=== PATIENT | female | born 1990 | race African-American/Black ===

== ENCOUNTER 2019-12-21 09:30 | Inpatient (IN) | payer OTHER ==
[2019-12-21] MEDS: ELECTROLYTE-148 SOLN 1,000 ML IV SCH (10:45)
[2019-12-21] MEDS ORDERED: BUTORPHANOL TARTRATE 2 MG/ML VIAL ONE (10:52)
[2019-12-21] MEDS ORDERED: PROMETHAZINE HCL 25 MG/1 ML VIAL ONE (10:52)
[2019-12-21] MEDS ORDERED: BUTORPHANOL TARTRATE 1 MG/ML VIAL IVPB ONE (10:52)
[2019-12-21] MEDS ORDERED: PROMETHAZINE HCL 25 MG/1 ML VIAL IVPB ONE (10:52)
[2019-12-21 11:21] LABS: BASO % 0.4 % (0-2.0); EOS % 0.1 % (0-4.5); HEMATOCRIT 31.7 % (32.4-45.2); LYMPH % 14.3 % (8-40); MCH 26.9 pg (25.7-33.7); MCHC 31.5 g/dl (32.0-36.0); MEAN CELL VOLUME 85.4 fl (80-96); MEAN PLT VOLUME 11.8 fl (7.5-11.1); MONO % 5.8 % (3.8-10.2); NEUT % 79.4 % (42.8-82.8); PLATELET COUNT 132 K/MM3 (134-434); RBC 3.71 M/mm3 (3.60-5.2); RDW 16.1 % (11.6-15.6); WHITE BLOOD COUNT 9.6 K/mm3 (4.0-10.0)
[2019-12-21 11:29] LABS: INR 0.92 (0.83-1.09); PROTHROMBIN TIME (PATIENT) 10.8 SEC (9.7-13.0)
[2019-12-21 11:32] LABS: ACTIVATED PTT 29.1 SECONDS (25.2-36.5)
[2019-12-21 11:37] VITALS: BMI 42.9
[2019-12-21 11:42] LABS: BLOOD UREA NITROGEN 9.5 mg/dL (7-18); CALCIUM 9.3 mg/dL (8.5-10.1); CREATININE 0.7 mg/dL (0.55-1.3); POTASSIUM 4.1 mmol/L (3.5-5.1)
[2019-12-21] MEDS ORDERED: OXYTOCIN 20 UNITS in 0.9% NS 20 UNIT/1,000 ML INFUS.BAG IV ONE (11:48)
[2019-12-21] MEDS ORDERED: LIDOCAINE HCL 1% PRESERVATIVE FREE - 30ML VIAL ONE (11:48)
--- NOTE | 2019-12-21 11:54 | HP ---
Past Medical History - Primary Care Physician PCP:: - Admission Chief Complaint: In labor History of Present Illness: Late transfer. GBS neg. History Source: Medical Record, Caregiver Limitations to Obtaining History: No Limitations - Past Medical History APPRENTICE: No: Alzheimer's, CVA, Dementia, Migraine, Multiple Sclerosis, Peripheral Neuropathy, Parkinson's, Seizure, Syncope, TIA, Vertigo, Other Cardiovascular: No: AFIB, Aneurysm, Aortic Insufficiency, Aortic Stenosis, CAD, CHF, Deep Vein Thrombosis, HTN, Hyperlipdemia, IN, Mitral Insufficiency, Mitral Stenosis, Murmur, Pulmonary Hypertension, Other Pulmonary: No: Asthma, Bronchitis, Cancer, COPD, O2 Dependent, Pneumonia, Previously Intubated, Pulmonary Embolus, Pulmonary Fibrosis, Sleep Apnea, Other Gastrointestinal: No: Ascites, Cancer, Constipation, Crohn's Disease, Diverticulitis, Diverticulosis, Esophageal Varices, Gastritis, GERD, GI Bleed, Hemorrhoids, Hiatal Hernia, Inflamatory Bowel Disease, Irritable Bowel Disease, Pancreatitis, Peptic Ulcer Disease, Ulcerative Colitis, Other Hepatobiliary: No: Cirrhosis, Cholelithiasis, Cholecystitis, Choledocholithiasis, Hepatitis A, Hepatitis B, Hepatitis C, Other Renal/: No: Renal Failure, Renal Inusuff, BPH, Cancer, Hematuria, Hemodialysis, Neurogenic Bladder, Renal Calculi, UTI, Other Reproductive: No: Ectopic , Endometriosis, Fibroids, PID, Polycystic Ovary Syndrome, Postmenopausal, Other ...: 2 ...Para: 0 ...Term: 0 ...: 0 ...Spon : 1 ...Induced : 0 ...Living Children: 0 ...Multiple Gestation: 0 ...EDC by Sono: 12/19/19 Heme/Onc: No: Anemia, B12 Deficiency, Bleeding Disorder, Cancer, Current Chem otherapy, Current Radiation Therapy, Hemochromatosis, Hypercoaguable State, Myeloproliferative Synd, Sickle Cell Disease, Sickle Cell Trait, Thrombocytopenia, Other Infectious Disease: No: AIDS, C-Diff, Herpes Zoster, HIV, MRSA, STD's, Tuberculosis, VREF, Other Psych: No: Addictions, Anxiety, Bipolar, Depression, Panic, Psychosis, Schizophrenia, Other Musculoskeletal: No: Bursitis, Chronic low back pain, Hemiparesis, Hemiplegia, Osteoarthritis, Paraplegia, Other Rheumatology: No: Fibromyalgia, Gout, Lupus, Rheumatoid Arthritis, Sarcoidosis, Vasculitis, Other ENT: No: Allergic Rhinitis, Sinusitis, Other Endocrine: No: Jayton's Disease, Gunnar's Disease, Diabetes Insipidus, Diabetes Mellitus, Hyperparathyroidism, Hyperthyroidism, Hypothyroidism, Osteopenia, SIADH, Other Dermatology: No: Basal Cell, Cellulitis, Eczema, Melanoma, Psoriasis, Squamous Cell, Other - Past Surgical History Past Surgical History: No: None, AAA Repair, AICD, Amputation, Appendectomy, Arthrosocopy, AV Fistula/Graft, Bariatric Surgery, Breast Biopsy, Bypass, CABG, Carotid Endarterectomy, Cataract Removal, Cholecystectomy, Colectomy, Colonoscopy, Colostomy, Craniotomy, , Cystectomy, Hernia Repair, Hysterectomy, Ileal Conduit, Ileosotomy, Joint Replacement, Kidney Transplant, Laminectomy, Liver Transplant, Mastectomy, Nephrectomy, Oopherectomy, Orchiectomy, Permanent Pacemaker, Prostatectomy, Splenectomy, Stent, Thoracotomy, TURP, Tonsillectomy, Tubal Ligation, Upper Endoscopy, Valve Replacement, Vasectomy, Vein Stripping/Ligation - Advance Directives Advance Directives: No: Living Will, Health Care Proxy, DNR, Organ Donor, Tissue Donor, MOLST - Smoking History Smoking history: Never smoked Have you smoked in the past 12 months: No - Alcohol/Substance Use Hx Alcohol Use: No History of Substance Use: denies: None, Cocaine, Heroin, Marijuana, Prescription, Tranquilizers Home Medications - Allergies Allergies/Adverse Reactions: Allergies Allergy/AdvReac Type Severity Reaction Status Date / Time No Known Allergies Allergy Verified 12/21/19 10:26 - Home Medications Home Medications: Ambulatory Orders NK [No Known Home Medication] 12/21/19 Review of Systems - Review of Systems Constitutional: reports: No Symptoms Eyes: reports: No Symptoms HENT: reports: No Symptoms Neck: reports: No Symptoms Cardiovascular: reports: No Symptoms Respiratory: reports: No Symptoms Gastrointestinal: reports: No Symptoms Genitourinary: reports: No Symptoms Breasts: reports: No Symptoms Reported Musculoskeletal: reports: No Symptoms Integumentary: reports: No Symptoms Neurological: reports: No Symptoms Endocrine: reports: No Symptoms Hematology/Lymphatic: reports: No Symptoms Psychiatric: reports: No Symptoms Physical Exam - Maternity Vital Signs: Vital Signs Temperature 98.3 F 12/21/19 11:00 Pulse Rate 77 12/21/19 11:00 Respiratory Rate 18 12/21/19 11:00 Blood Pressure 141/88 12/21/19 11:00 O2 Sat by Pulse Oximetry (%) Constitutional: Yes: Well Nourished, No Distress, Calm Eyes: Yes: WNL, Conjunctiva Clear, EOM Intact HENT: Yes: WNL, Atraumatic, Normocephalic Neck: Yes: WNL, Supple, Trachea Midline Cardiovascular: Yes: WNL, Regular Rate and Rhythm Breast(s): Yes: WNL - Abdominal Exam/OB Contractions: Yes Regularity: Regular Monitor Mode: External Heart Rate Location: [facility] Category: I Accelerations: Non-Uniform Decelerations: Variable - Vaginal Exam/OB Vaginal Bleeding: No Dilatation (cm): 4 Effacement (%): 50 Amniotic Membrane Status: Intact Station: -2 - Labs Lab Results: CBC, BMP 12/21/19 10:08 12/21/19 10:08 Problem List - Problems (1) Post-dates Code(s): O48.0 - POST-TERM (2) Active labor Code(s): TIO5839 - Assessment/Plan Active labor. Pt. requested IV meds. Declines epidural Stadol/Phenergan given. Variable decelerations; quite deep.
--- NOTE | 2019-12-21 11:56 | PN ---
Progress Note, Labor Vaginal Exam #1 Labor Exam Date: 12/21/19 Labor Exam Time: 11:45 Heart Rate (range): 140 Dilatation: 8 Effacement (%): 100 Amniotic Membrane Status: Intact Presentation: Vertex/Position Station: -2 (AROM - meconium. Varieble decels. Position change, O2. Observe.)
[2019-12-21] MEDS ORDERED: OXYTOCIN 30 UNITS in 0.9% NS 30 UNIT/500 ML INFUS.BAG IVPB ONE (14:37)
--- NOTE | 2019-12-21 14:49 | PN ---
Progress Note, Labor Vaginal Exam #2 Labor Exam Date: 12/21/19 Labor Exam Time: 14:30 Heart Rate (range): 140 Dilatation: rim Effacement (%): 100 Presentation: Vertex/Position Station: -2 (OP. FH cat 1. Occ variables. Insuficient ctx. Augmentation.)
[2019-12-21] MEDS: OXYTOCIN 30 UNITS in 0.9% NS 30 UNIT/500 ML INFUS.BAG IVPB SCH (15:00)
[2019-12-21] MEDS ORDERED: BISACODYL 10 MG SUPP.RECT RC PRN ×2 (17:10→17:12)
[2019-12-21] MEDS ORDERED: BENZOCAINE 28 GM HEMORRHOIDAL OINTMENT TP PRN ×2 (17:10→17:12)
[2019-12-21] MEDS ORDERED: METHYLERGONOVINE MALEATE 0.2 MG/1 ML AMP IM PRN ×2 (17:10→17:12)
[2019-12-21] MEDS ORDERED: BENZOCAINE 20% 57 GM BOTTLE TP PRN ×2 (17:10→17:12)
[2019-12-21] MEDS ORDERED: WITCH HAZEL 50% (TUCKS) 40 PAD/JAR PAD TP PRN ×2 (17:10→17:12)
[2019-12-21] MEDS ORDERED: IBUPROFEN 600 MG TABLET (FP) PO PRN (17:12)
[2019-12-21] MEDS ORDERED: ACETAMINOPHEN 325 MG TABLET (FP) PO PRN (17:12)
[2019-12-21] MEDS ORDERED: OXYTOCIN 20 UNITS in 0.9% NS 1000 ML INFUS.BAG IV ONE (17:14)
--- NOTE | 2019-12-21 17:20 | PN ---
Progress Note, Labor Vaginal Exam #4 Labor Exam Date: 12/21/19 Labor Exam Time: 15:00 Dilatation: 10 Presentation: Vertex/Position Station: +1 (pushing. rotating the head.)
--- NOTE | 2019-12-21 17:26 | PN ---
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 Good delivery. Episiotomy repaired.
[2019-12-21] MEDS ORDERED: ACETAMINOPHEN 325 MG TABLET (FP) ONE (17:35)
[2019-12-21] MEDS ORDERED: IBUPROFEN 600 MG TABLET (FP) PO ONE (17:35)
[2019-12-21] MEDS: IBUPROFEN 600 MG TABLET (FP) PO PRN (17:37)
[2019-12-21] MEDS: ACETAMINOPHEN 325 MG TABLET (FP) PO PRN (17:38)
[2019-12-22 08:20] LABS: BASO % 0.1 % (0-2.0); EOS % 0.1 % (0-4.5); HEMATOCRIT 25.6 % (32.4-45.2); LYMPH % 15.6 % (8-40); MCH 26.9 pg (25.7-33.7); MEAN CELL VOLUME 86.8 fl (80-96); MEAN PLT VOLUME 11.7 fl (7.5-11.1); MONO % 8.5 % (3.8-10.2); NEUT % 75.7 % (42.8-82.8); PLATELET COUNT 104 K/MM3 (134-434); RBC 2.95 M/mm3 (3.60-5.2); RDW 15.8 % (11.6-15.6); WHITE BLOOD COUNT 14.1 K/mm3 (4.0-10.0)
--- NOTE | 2019-12-22 16:53 | PN ---
Post Progress Note - Subjective Subjective: doing well, Post Day: 1 Type of Delivery: Vital Signs: Vital Signs Temperature 98.3 F 12/22/19 04:31 Pulse Rate 83 12/22/19 04:31 Respiratory Rate 20 12/22/19 04:31 Blood Pressure 132/77 12/22/19 04:31 O2 Sat by Pulse Oximetry (%) Breast Exam: Yes: Soft Uterus: Yes: Fundus Firm, Fundus below umbilicus, Non-tender Abdomen/GI: Yes: Abdomen soft, Passing flatus, Tolerating PO Lochia: Yes: Serosa Lochia, amount: Small Extremities: Yes: Calves non-tender Activity: Ambulating - Labs Labs: CBC WBC 14.1 K/mm3 (4.0-10.0) H 12/22/19 07:37 RBC 2.95 M/mm3 (3.60-5.2) L 12/22/19 07:37 Hgb 8.0 GM/dL (10.7-15.3) L 12/22/19 07:37 Hct 25.6 % (32.4-45.2) L D 12/22/19 07:37 MCV 86.8 fl (80-96) 12/22/19 07:37 MCH 26.9 pg (25.7-33.7) 12/22/19 07:37 MCHC 31.0 g/dl (32.0-36.0) L 12/22/19 07:37 RDW 15.8 % (11.6-15.6) H 12/22/19 07:37 Plt Count 104 K/MM3 (134-434) L D 12/22/19 07:37 MPV 11.7 fl (7.5-11.1) H 12/22/19 07:37 Absolute Neuts (auto) 10.6 K/mm3 (1.5-8.0) H 12/22/19 07:37 Neutrophils % 75.7 % (42.8-82.8) 12/22/19 07:37 Lymphocytes % 15.6 % (8-40) 12/22/19 07:37 Monocytes % 8.5 % (3.8-10.2) 12/22/19 07:37 Eosinophils % 0.1 % (0-4.5) 12/22/19 07:37 Basophils % 0.1 % (0-2.0) 12/22/19 07:37 Nucleated RBC % 0 % (0-0) 12/22/19 07:37 Other Findings, Remarks: recovering well, will dc pt home tomorrow
--- NOTE | 2019-12-22 16:55 | DS ---
Physical Exam-CUSTOMER LOYALTY REPRESENTATIVE Vital Signs: Vital Signs Temperature 98.3 F 12/22/19 04:31 Pulse Rate 83 12/22/19 04:31 Respiratory Rate 20 12/22/19 04:31 Blood Pressure 132/77 12/22/19 04:31 O2 Sat by Pulse Oximetry (%) Constitutional: Yes: Well Nourished, No Distress, Calm Eyes: Yes: WNL, Conjunctiva Clear, EOM Intact HENT: Yes: WNL, Atraumatic, Normocephalic Neck: Yes: WNL, Supple, Trachea Midline Cardiovascular: Yes: WNL, Regular Rate and Rhythm Respiratory: Yes: WNL, Regular, CTA Bilaterally Gastrointestinal: Yes: WNL, Normal Bowel Sounds, Soft ...Rectal Exam: Yes: WNL Renal/: Yes: WNL Pelvis: Yes: WNL External Genitalia: Yes: Normal Internal Exam Deferred: Yes Vaginal Exam: Yes: Normal Cervix: Yes: Normal Uterus: Yes: Normal Adnexa: Normal: Bilateral ....Post : Yes: Uterus firm, Uterus non-tender Breast(s): Yes: WNL Musculoskeletal: Yes: WNL Extremities: Yes: WNL Edema: Yes Integumentary: Yes: WNL Wound/Incision: Yes: Clean/Dry, Well Approximated Neurological: Yes: WNL, Alert, Oriented ...Motor Strength: WNL Psychiatric: Yes: WNL, Alert, Oriented Labs: CBC, BMP 12/22/19 07:37 12/21/19 10:08 Delivery - Delivery Type of Anesthesia: Local Episiotomy/Laceration: Midline EBL (cc): 300 Delivery, Single - Stages of Labor Date 1st Stage Initiatied: 12/20/19 Time 1st Stage Initiated: 20:00 Date 2nd Stage Initiated: 12/21/19 Time 2nd Stage Initiated: 14:30 Date of Delivery: 12/21/19 Time of Delivery: 16:35 Time Placenta Delivered: 16:40 Placenta: Yes: Spontaneous, Normal Configuration - 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 Gender: Male Position: Left, OA Total Hours ROM (Hrs/Mins): 4hrs 55min - 1 Minute Total Score: 9 5 Minutes Total Score: 9 - Feeding Plan Initial Plan: Elected not to breastfeed exclusively throughout hospitalization Benefits of Exclusively reinforced: Yes Discharge Summary Problems reviewed: Yes Reason For Visit: LABOR ADMISSION Current Active Problems Active labor (Acute) Post-dates (Acute) Procedures: Principal: Other Procedures: none Hospital Course: uneventful Health Concerns: none Plan of Treatment: oob as much as possible Condition: Good - Instructions Diet, Activity, Other Instructions: Physical activity Resume your normal everyday activity as tolerated no heavy lifting or exercise until seen by your surgeon. You may walk unlimited brad of and climb stairs. You may resume driving the car when you feel safe and comfortable behind the wheel. No sexual activity as instructed. Wound care If you have a bandage, leave it on, and keep dry for 48-72 hours. After that time discard the outer bandage. If they are tapes on the skin under the out of bandage leave them in place. They will peel off in the next 7 to 10 days. Do Not Peel them off. You may shower the day after surgery. If there are tapes present on the skin, you may shower over them. Diet There are no dietary restrictions. Eat healthy, high-fiber foods. Drink 6 to 8 g lasses of liquid each day. This will assist in keeping your bowels are regular. Pain management You may take Tylenol or acetaminophen or Ibuprofen (for example, Motrin, Advil etc.) from my pain prescription medication is ordered should be taken as prescribed for moderate to severe pain. Call MD for any of the following: call dr serrano for 6 weeks appointment Severe pain not relieved by medication Fever of 101 or higher Excessive bleeding or drainage on dressing Inability to urinate Disposition: HOME - Home Medications Comprehensive Discharge Medication List: Ambulatory Orders NK [No Known Home Medication] 12/21/19
[2019-12-22] MEDS: IBUPROFEN 600 MG TABLET (FP) PO PRN (17:42)
[2019-12-22] MEDS: ACETAMINOPHEN 325 MG TABLET (FP) PO PRN (17:43)
[2019-12-22] MEDS ORDERED: SENNOSIDES/DOCUSATE COMBO (SENNA PLUS) TABLET (UD) PO PRN ×2 (22:00)
[2019-12-23] MEDS: ELECTROLYTE-148 SOLN 1,000 ML IV SCH (04:24)
[2019-12-23] MEDS: OXYTOCIN 30 UNITS in 0.9% NS 30 UNIT/500 ML INFUS.BAG IVPB SCH (04:24)
[2019-12-23] MEDS: ACETAMINOPHEN 325 MG TABLET (FP) PO PRN (04:25)
[2019-12-23] MEDS: IBUPROFEN 600 MG TABLET (FP) PO PRN (04:25)
[2019-12-23 09:25] VITALS: BP 129/60; PULSE 110; TEMP 98.2
== END 2019-12-23 15:00 | disposition home or self-care (01) | DRG 560 ==
LOC: JLDR 09:30 → J3W 20:20
PROVIDERS: ADMIT Specialist; ATTEND Specialist
PROC: 0W8NXZZ Division of Female Perineum, External Approach (ICD-10-PCS; principal; 2019-12-21)
PROC: 10E0XZZ Delivery of Products of Conception, External Approach (ICD-10-PCS; 2019-12-21)
DX: O48.0 Post-term pregnancy (principal); Z3A.40 40 weeks gestation of pregnancy; Z37.0 Single live birth
CPT/HCPCS: 36415; 59409; 80048; 85025; 85610; 85730; 86780; 86850; 86900; 86901; 87389; U0003